=== PATIENT | male | born 1985 | race Asian ===

== ENCOUNTER 2020-12-24 00:06 | Emergency (ER) | payer BC, OTHER ==
[~2020-12-24] VITALS: Ht 177.8 cm; Wt 108.9 kg
[2020-12-24 00:58] LABS: Basophils # (auto) 0 10 ^3/uL (0-0.2); Basophils % (auto) 0.2 % (0.0-2.0); Eosinophils # (auto) 0.1 10 ^3/uL (0-0.8); Eosinophils % (auto) 1.1 % (0.0-7.0); Hematocrit 50.1 % (41.0-53.0); Hemoglobin 17.5 g/dL (13.5-17.5); Lymphocytes # (auto) 1.5 10 ^3/uL (0.4-5.4); Lymphocytes % (auto) 18.8 % (10.0-50.0); Mean Corpuscular Hemoglobin 30.2 pg (28.0-32.0); Mean Corpuscular Volume 86.3 fL (80.0-100.0); Monocytes # (auto) 1.1 10 ^3/uL (0-1.3); Monocytes % (auto) 13.5 % (0.0-12.0); Neutrophils # (auto) 5.5 10 ^3/uL (1.6-8.6); Neutrophils % (auto) 66.4 % (37.0-80.0); Nucleated Red Blood Cells % 0.2 %; Red Blood Cells 5.81 10^6/uL (4.5-5.90); Red Cell Distribution Width 13.4 % (11.8-14.3); White Blood Cell 8.2 10^3/uL (4.4-10.8)
[2020-12-24 01:26] LABS: Albumin 3.6 g/dL (3.4-5.0); BUN/Creatinine Ratio 13.5; Calcium 8.2 mg/dL (8.5-10.1); Potassium 3.2 mmol/L (3.5-5.1)
[2020-12-24 01:47] LABS: Bilirubin, Total 0.7 mg/dL (0.2-1.0); Total Protein 7.8 g/dL (6.4-8.2)
[2020-12-24] MEDS ORDERED: SODIUM CHLORIDE 0.9% 1,000 ML IV ONE ×2 (08:00)
[2020-12-24] MEDS ORDERED: POTASSIUM EFFERVESENT TAB 25 MEQ PO ONE (10:15)
[2020-12-24] MEDS ORDERED: cefTRIAXone 1GM/50ML D5W 50 ML IV ONE (10:15)
[2020-12-24 10:30] VITALS: BP 131/78
== END 2020-12-24 11:08 | disposition home or self-care (01) ==
LOC: ER 00:12
DX: E87.6 Hypokalemia (principal); J32.9 Chronic sinusitis, unspecified; M79.3 Panniculitis, unspecified; I10 Essential (primary) hypertension; Z88.6 Allergy status to analgesic agent
CPT/HCPCS: 36415; 70450; 74176; 80053; 85025; 96361; 96365; 99285; J0696; J7030

== ENCOUNTER 2020-12-24 15:59 | Inpatient (IN) | payer BC ==
[~2020-12-24] VITALS: Ht 177.8 cm; Wt 111.0 kg
[2020-12-24] MEDS ORDERED: LABETALOL HCL 5 MG/ML 4ML SYRINGE IV PRN (17:15)
[2020-12-24] MEDS ORDERED: DOCUSATE CALCIUM 240 MG CAP PO PRN (17:15)
[2020-12-24] MEDS ORDERED: NITROGLYCERIN 0.4 MG SL TAB SL PRN (17:15)
[2020-12-24] MEDS ORDERED: MORPHINE SULF INJ 2 MG/ML SYRINGE 1ML IV PRN (17:15)
[2020-12-24] MEDS ORDERED: ONDANSETRON HCL 4 MG/2 ML VIAL IV PRN (17:15)
[2020-12-24] MEDS ORDERED: TETANUS-DIPTH-ACEL PERTUSSIS 0.5ML SYR Tdap IM ONE (17:15)
[2020-12-24 18:01] LABS: Alcohol, Urine < 3.0 mg/dL (0-10); Amphetamine Screen, Urine NEGATIVE (NEGATIVE); Barbiturate Scree,Urine NEGATIVE (NEGATIVE); Benzodiazephine Screen, Urine NEGATIVE (NEGATIVE); Cannabinoid Screen, Urine NEGATIVE (NEGATIVE); Cocaine Screen, Urine NEGATIVE (NEGATIVE); Opiate Scree,Urine NEGATIVE (NEGATIVE); Phencyclidine Screen, Urine NEGATIVE (NEGATIVE)
[2020-12-24 18:47] LABS: Urine Bacteria FEW /hpf (None Seen); Urine Blood Negative /uL (Negative); Urine Mucus FEW (None Seen); Urine Specific Gravity 1.028 (1.001-1.035); Urine WBC 2 /hpf (0 - 3)
[2020-12-24 21:00] VITALS: BP 134/82
[2020-12-24] MEDS ORDERED: LORazepam 2MG/ML-1ML VIAL IV PRN (21:15)
[2020-12-24 21:23] LABS: Potassium 3.1 mmol/L (3.5-5.1)
[2020-12-24 21:38] LABS: Cholesterol 123 mg/dL (< 200)
[2020-12-24 21:41] LABS: HDL Cholesterol 38 mg/dL (40-59); LDL Cholesterol 75 mg/dL (< 100); Triglycerides 95 mg/dL (< 150)
[2020-12-24 22:00] VITALS: BP 134/82
[2020-12-24] MEDS ORDERED: LORazepam 0.5 MG TAB PO PRN (22:00)
[2020-12-24] MEDS: ATORVASTATIN 20 MG TAB PO SCH (22:20)
[2020-12-25 05:00] VITALS: BP 122/80
[2020-12-25 06:58] LABS: Basophils # (auto) 0 10 ^3/uL (0-0.2); Basophils % (auto) 0.2 % (0.0-2.0); Eosinophils # (auto) 0.1 10 ^3/uL (0-0.8); Eosinophils % (auto) 1.1 % (0.0-7.0); Hematocrit 42.1 % (41.0-53.0); Hemoglobin 14.7 g/dL (13.5-17.5); Lymphocytes # (auto) 2.3 10 ^3/uL (0.4-5.4); Lymphocytes % (auto) 25.3 % (10.0-50.0); Mean Corpuscular Hemoglobin 29.9 pg (28.0-32.0); Mean Corpuscular Volume 85.3 fL (80.0-100.0); Monocytes % (auto) 10.6 % (0.0-12.0); Neutrophils # (auto) 5.8 10 ^3/uL (1.6-8.6); Neutrophils % (auto) 62.8 % (37.0-80.0); Nucleated Red Blood Cells % 0.1 %; Red Blood Cells 4.93 10^6/uL (4.5-5.90); Red Cell Distribution Width 13.2 % (11.8-14.3); White Blood Cell 9.2 10^3/uL (4.4-10.8)
[2020-12-25 07:01] LABS: INR 1.05 (0.9-1.15)
[2020-12-25 07:22] LABS: Albumin 3.2 g/dL (3.4-5.0); Calcium 8.2 mg/dL (8.5-10.1); Potassium 3.3 mmol/L (3.5-5.1)
[2020-12-25 07:25] LABS: BUN/Creatinine Ratio 16.7; Bilirubin, Total 0.5 mg/dL (0.2-1.0); CRP High Sensitivity 0.92 mg/dL (< 0.3); Total Protein 6.8 g/dL (6.4-8.2)
[2020-12-25 08:00] VITALS: BP 141/85
[2020-12-25 09:00] VITALS: BP 141/85
[2020-12-25] MEDS: CLOPIDOGREL BISULFATE 75 MG TAB PO SCH (10:20)
[2020-12-25] MEDS: ENOXAPARIN SOD 40 MG/0.4 ML SYRINGE SC SCH (10:20)
[2020-12-25] MEDS: PANTOPRAZOLE 40 MG TAB PO SCH (10:20)
[2020-12-25] MEDS: ASPirin 81 mg TAB PO SCH (10:20)
[2020-12-25] MEDS ORDERED: HYDROcodone-ACET 5/325MG TAB PO PRN (11:45)
[2020-12-25] MEDS ORDERED: POTASSIUM CHLORIDE 40 MEQ, LIDOCAINE 1% (LOCAL ANESTH.) 4 ML in SODIUM CHL 0.9% 250 ML IV ONE (11:45)
[2020-12-25] MEDS ORDERED: ACETAMINOPHEN 325 MG TAB PO PRN (11:45)
[2020-12-25] MEDS ORDERED: MORPHINE SULF INJ 2 MG/ML SYRINGE 1ML IV PRN (12:15)
[2020-12-25 13:00] VITALS: BP 139/94
[2020-12-25 17:00] VITALS: BP 135/80
[2020-12-25] MEDS ORDERED: levoFLOXacin 500MG 100 ML IV ONE (20:15)
[2020-12-25 22:00] VITALS: BP 134/75
[2020-12-25] MEDS: ATORVASTATIN 20 MG TAB PO SCH (22:45)
[2020-12-25] MEDS: metroNIDAZOLE 500MG/100ML 100 ML IV SCH (23:40)
[2020-12-26 05:00] VITALS: BP 129/77
[2020-12-26] MEDS: metroNIDAZOLE 500MG/100ML 100 ML IV SCH ×3 (05:23→22:00)
[2020-12-26 06:28] LABS: Basophils # (auto) 0 10 ^3/uL (0-0.2); Basophils % (auto) 0.4 % (0.0-2.0); Eosinophils # (auto) 0.1 10 ^3/uL (0-0.8); Eosinophils % (auto) 1.7 % (0.0-7.0); Hematocrit 40.9 % (41.0-53.0); Hemoglobin 14.1 g/dL (13.5-17.5); Lymphocytes % (auto) 21.7 % (10.0-50.0); Mean Corpuscular Hemoglobin 29.4 pg (28.0-32.0); Mean Corpuscular Hgb Conc. 34.5 g/dL (32.0-36.0); Mean Corpuscular Volume 85.2 fL (80.0-100.0); Monocytes # (auto) 0.8 10 ^3/uL (0-1.3); Monocytes % (auto) 8.8 % (0.0-12.0); Neutrophils # (auto) 6.1 10 ^3/uL (1.6-8.6); Neutrophils % (auto) 67.4 % (37.0-80.0); Red Cell Distribution Width 13.2 % (11.8-14.3); White Blood Cell 9.1 10^3/uL (4.4-10.8)
[2020-12-26 06:49] LABS: Calcium 8.1 mg/dL (8.5-10.1); Potassium 3.6 mmol/L (3.5-5.1)
[2020-12-26 06:51] LABS: BUN/Creatinine Ratio 17.2
[2020-12-26 08:51] VITALS: BP 91/46
[2020-12-26 08:54] VITALS: BP 129/71
[2020-12-26] MEDS: levoFLOXacin 500MG 100 ML IV SCH (09:08)
[2020-12-26] MEDS: PANTOPRAZOLE 40 MG TAB PO SCH (09:08)
[2020-12-26] MEDS: ASPirin 81 mg TAB PO SCH (09:08)
[2020-12-26] MEDS: CLOPIDOGREL BISULFATE 75 MG TAB PO SCH (09:08)
[2020-12-26] MEDS: ENOXAPARIN SOD 40 MG/0.4 ML SYRINGE SC SCH (09:08)
[2020-12-26 12:58] VITALS: BP 137/74
[2020-12-26 17:00] VITALS: BP 130/76
[2020-12-26 22:00] VITALS: BP 135/91
[2020-12-26] MEDS: ATORVASTATIN 20 MG TAB PO SCH (22:00)
[2020-12-27 05:00] VITALS: BP 137/82
[2020-12-27 05:31] LABS: Basophils # (auto) 0 10 ^3/uL (0-0.2); Basophils % (auto) 0.6 % (0.0-2.0); Eosinophils # (auto) 0.2 10 ^3/uL (0-0.8); Eosinophils % (auto) 2.3 % (0.0-7.0); Hematocrit 42.1 % (41.0-53.0); Hemoglobin 14.7 g/dL (13.5-17.5); Lymphocytes # (auto) 2.1 10 ^3/uL (0.4-5.4); Lymphocytes % (auto) 27.4 % (10.0-50.0); Mean Corpuscular Hemoglobin 29.6 pg (28.0-32.0); Mean Corpuscular Hgb Conc. 34.8 g/dL (32.0-36.0); Mean Corpuscular Volume 85.1 fL (80.0-100.0); Monocytes # (auto) 0.7 10 ^3/uL (0-1.3); Neutrophils # (auto) 4.6 10 ^3/uL (1.6-8.6); Neutrophils % (auto) 60.7 % (37.0-80.0); Nucleated Red Blood Cells % 0.1 %; Red Blood Cells 4.95 10^6/uL (4.5-5.90); Red Cell Distribution Width 12.9 % (11.8-14.3); White Blood Cell 7.6 10^3/uL (4.4-10.8)
[2020-12-27] MEDS: metroNIDAZOLE 500MG/100ML 100 ML IV SCH ×3 (05:38→21:53)
[2020-12-27] MEDS: ASPirin 81 mg TAB PO SCH (08:50)
[2020-12-27] MEDS: levoFLOXacin 500MG 100 ML IV SCH (08:50)
[2020-12-27] MEDS: PANTOPRAZOLE 40 MG TAB PO SCH (08:50)
[2020-12-27] MEDS: ENOXAPARIN SOD 40 MG/0.4 ML SYRINGE SC SCH (08:50)
[2020-12-27] MEDS: CLOPIDOGREL BISULFATE 75 MG TAB PO SCH (08:51)
[2020-12-27 09:00] VITALS: BP 126/72
[2020-12-27 13:00] VITALS: BP 122/70
[2020-12-27 17:00] VITALS: BP 132/91
[2020-12-27] MEDS: ATORVASTATIN 20 MG TAB PO SCH (21:53)
[2020-12-27 22:00] VITALS: BP 143/78
[2020-12-27 22:03] VITALS: BP 132/91
[2020-12-28 05:00] VITALS: BP 114/69
[2020-12-28] MEDS: metroNIDAZOLE 500MG/100ML 100 ML IV SCH ×2 (05:36→13:40)
[2020-12-28] MEDS ORDERED: MIDAZOLAM HCL 1MG/1ML-2 ML VIAL IV ONE (08:00)
[2020-12-28 09:00] VITALS: BP 145/87
[2020-12-28] MEDS: PANTOPRAZOLE 40 MG TAB PO SCH (10:07)
[2020-12-28] MEDS: CLOPIDOGREL BISULFATE 75 MG TAB PO SCH (10:07)
[2020-12-28] MEDS: ASPirin 81 mg TAB PO SCH (10:07)
[2020-12-28] MEDS: levoFLOXacin 500MG 100 ML IV SCH (10:07)
[2020-12-28] MEDS: ENOXAPARIN SOD 40 MG/0.4 ML SYRINGE SC SCH (10:08)
[2020-12-28] MEDS ORDERED: ASPI1CHW15 PO ×2 (10:52)
[2020-12-28] MEDS ORDERED: LEVO750T64 PO ×2 (10:52)
[2020-12-28] MEDS ORDERED: PANT40T PO ×2 (10:52)
[2020-12-28] MEDS ORDERED: CLOP75TA28 PO ×2 (10:52)
[2020-12-28] MEDS ORDERED: METR500T PO ×2 (10:52)
[2020-12-28] MEDS ORDERED: ATOR20TA50 PO ×2 (10:52)
[2020-12-28 13:00] VITALS: BP 141/82
[2020-12-28 17:00] VITALS: BP 140/87
[2020-12-29 05:07] LABS: RPR Non Reactive (Non Reactive)
== END 2020-12-28 19:10 | disposition home health service (06) | DRG 65 ==
LOC: ER 15:59 → OVERFLOW 17:25 → EAST 20:59 → TELE-EAST 12-26 15:57
PROVIDERS: ADMIT Family Medicine; ATTEND Internal Medicine Pulmonary Disease
DX: I63.512 Cerebral infarction due to unspecified occlusion or stenosis of left middle cerebral artery (principal); K65.4 Sclerosing mesenteritis; G81.91 Hemiplegia, unspecified affecting right dominant side; Z20.822 Contact with and (suspected) exposure to COVID-19; E66.9 Obesity, unspecified; E87.6 Hypokalemia; F17.200 Nicotine dependence, unspecified, uncomplicated; G47.10 Hypersomnia, unspecified; I10 Essential (primary) hypertension; K52.9 Noninfective gastroenteritis and colitis, unspecified; M79.3 Panniculitis, unspecified; S80.01XA Contusion of right knee, initial encounter; R47.81 Slurred speech; Z53.20 Procedure and treatment not carried out because of patient's decision for unspecified reasons; S93.401A Sprain of unspecified ligament of right ankle, initial encounter; W01.0XXA Fall on same level from slipping, tripping and stumbling without subsequent striking against object, initial encounter; X50.1XXA Overexertion from prolonged static or awkward postures, initial encounter; Z79.02 Long term (current) use of antithrombotics/antiplatelets; Z79.82 Long term (current) use of aspirin; Z79.899 Other long term (current) drug therapy; Z82.49 Family history of ischemic heart disease and other diseases of the circulatory system; Z82.5 Family history of asthma and other chronic lower respiratory diseases; Z83.3 Family history of diabetes mellitus; Y92.89 Other specified places as the place of occurrence of the external cause; Y99.8 Other external cause status; Z88.5 Allergy status to narcotic agent; Z68.35 Body mass index [BMI] 35.0-35.9, adult
CPT/HCPCS: 36415; 70545; 70551; 71045; 73610; 80048; 80051; 80053; 80061; 80307; 81001; 81241; 84443; 85025; 85302; 85305; 85306; 85610; 85613; 85652; 85670; 85705; 85730; 85732; 86141; 86225; 86235; 86592; 87426; 90471; 90715; 93312; 93886; 94660; 94762; 97110; 97116; 97530; 99152; G0378; J1956; J2001; J2250; J3490